=== PATIENT | male | born 1960 | race African-American/Black ===

== ENCOUNTER 2021-06-22 15:31 | Outpatient (CLI) | payer OTHER, SELFPAY ==
--- NOTE | ~2021-06-22 | US_ITS ---
EXAMINATION: US retroperitoneal duplex ltd DATE: 06/22/2021 16:37 INDICATION: Essential hypertension TECHNIQUE: Multiple grayscale, color Doppler, and pulsed Doppler images of the kidneys and renal fiorella delgado were obtained. COMPARISON: None. FINDINGS: The aorta peak systolic velocity is 72 cm/s. The right renal artery peak systolic velocity is 71 cm/s in the proximal segment, 87 cm/s in the mid segment, and 63 cm/s in the distal segment. The left glenis al artery peak systolic velocity is 64 cm/s in the proximal segment, 45 cm/s in the mid segment, and 64 cm/s in the distal segment. IMPRESSION: 1. No Doppler evidence of renal artery stenosis. Reviewed, dictated and finalized at location A.
== END 2021-06-22 15:32 | disposition home or self-care (01) ==
PROVIDERS: PCP Family Medicine; Visit Provider Physician Assistant
DX: I10 Essential (primary) hypertension (principal)
CPT/HCPCS: 93976

== ENCOUNTER 2024-02-26 17:07 | Outpatient (CLI) | payer OTHER, SELFPAY ==
--- NOTE | ~2024-02-26 | XR_ITS ---
Right ankle Technique: AP, oblique, and lateral views were obtained. Clinical History: Varicose veins Findings: No acute fracture or dislocation is seen. Osseous alignment is anatomic. Ankle mortise and other visualized joint spaces are preserved. Soft tissues are otherwise unremarkable. Impression: Unremarkable right ankle. Reviewed, dictated and finalized at [facility]. Impression: Unremarkable right ankle.
== END 2024-02-26 17:08 | disposition home or self-care (01) ==
LOC: ANHLAB 17:09
PROVIDERS: PCP Family Medicine; Visit Provider Family Medicine
DX: R50.9 Fever, unspecified (principal); L97.909 Non-pressure chronic ulcer of unspecified part of unspecified lower leg with unspecified severity; I83.009 Varicose veins of unspecified lower extremity with ulcer of unspecified site
CPT/HCPCS: 73610; 87040

== ENCOUNTER 2024-02-28 11:12 | Outpatient (CLI) | payer OTHER, SELFPAY ==
[2024-02-28 12:18] LABS: Influenza A QL RT-PCR Negative (Negative); Influenza B QL RT-PCR Negative (Negative); RSV RNA, RT-PCR Negative (Negative); SARS-CoV-2 RNA PCR Negative (Negative)
== END 2024-02-28 11:13 | disposition home or self-care (01) ==
LOC: ANHLAB 11:14
PROVIDERS: PCP Family Medicine; Visit Provider Physician Assistant
DX: R50.9 Fever, unspecified (principal); Z20.822 Contact with and (suspected) exposure to COVID-19
CPT/HCPCS: 87637

== ENCOUNTER 2024-04-17 14:27 | Outpatient (CLI) | payer OTHER, SELFPAY ==
--- NOTE | ~2024-04-17 | US_ITS ---
EXAMINATION:US venous doppler LE RT INDICATION:Right leg pain TECHNIQUE: Multiple grayscale, color flow and Doppler images of the right lower extremity deep venous systems were obtained and reviewed. COMPARISON:No prior studies for comparison. FINDINGS: The common femoral, superficial femoral and popliteal veins demonstrate normal respiratory variation, augmentation and compressibility. Color flow is also seen within the posterior tibial, pe roneal, greater saphenous and profunda veins. IMPRESSION: 1: No lower extremity deep venous thrombosis. Reviewed, dictated and finalized at location B.
== END 2024-04-17 14:28 ==
LOC: MICIMG 14:30
PROVIDERS: PCP Family Medicine; Visit Provider Family Medicine
DX: M79.89 Other specified soft tissue disorders (principal)
CPT/HCPCS: 93971

== ENCOUNTER 2024-05-14 15:26 | Outpatient (CLI) | payer OTHER, SELFPAY ==
[2024-05-14 16:05] LABS: Eosinophils Absolute Auto 0.1 K/mm3 (0-0.3); Eosinophils Percent Auto 1.8 % (0-4.4); Hemoglobin 10.8 g/dL (14.0-18.0); Immature Granulocyte Absolute 0.01 K/mm3 (0.00-0.031); Immature Granulocyte Percent A 0.3 % (0-0.5); Lymphocytes Absolute Auto 1.17 K/mm3 (0.9-3.2); Lymphocytes Percent Auto 30.4 % (18.3-44.2); Mean Corpuscular HGB Conc 31.8 g/dl (32-36); Mean Corpuscular Hemoglobin 28.3 pg (26-34); Mean Platelet Volume 9.2 fl (7.4-10.4); Monocytes Absolute Auto 0.5 K/mm3 (0.1-0.6); Monocytes Percent Auto 12.2 % (2.6-8.5); Neutrophils Absolute Auto 2.1 K/mm3 (1.3-6.7); Neutrophils Percent Auto 54.3 % (45.5-73.1); Platelet Count Result 193 k/mm3 (150-375); Red Blood Count 3.82 M/mm3 (4.6-6.20); Red Cell Distribution Width 14.9 % (11.5-14.5); White Blood Count 3.9 K/mm3 (4.5-10.0)
[2024-05-14 20:07] LABS: Iron 108 ug/dL (49-181)
[2024-05-14 20:17] LABS: Percent Iron Saturation 29 % (20-50)
[2024-05-14 22:37] LABS: Folic Acid 12.5 ng/mL (2.76->20)
[2024-05-15 11:13] LABS: Protein, Total 7.4 g/dL (6.1-8.1)
[2024-05-15 14:53] LABS: Alpha 1 Globulin 0.2 g/dL (0.2-0.3); Alpha 2 Globulin 0.7 g/dL (0.5-0.9); Beta 1 Globulin 0.6 g/dL (0.4-0.6); Gamma Globulin 1.3 g/dL (0.8-1.7)
[2024-05-15 23:48] LABS: Hematocrit 35.3 % (38.5-50.0); Hemoglobin 11.1 g/dL (13.2-17.1); MCH 28.4 pg (27.0-33.0); MCV 90.3 fL (80.0-100.0); RDW 14.3 % (11.0-15.0); Red Blood Cell Count 3.91 Million/uL (4.20-5.80)
[2024-05-19 12:07] LABS: Methylmalonic Acid 147 nmol/L (69-390)
[2024-05-23 14:29] LABS: Soluble Transferrin Receptor 2.08 mg/L (0.76-1.76)
== END 2024-05-14 15:27 | disposition home or self-care (01) ==
PROVIDERS: PCP Family Medicine; Visit Provider Internal Medicine Hematology & Oncology
DX: D64.9 Anemia, unspecified (principal)
CPT/HCPCS: 36415; 82607; 82728; 82746; 83021; 83540; 83550; 83921; 84155; 84165; 84238; 85025

== ENCOUNTER 2024-05-28 14:32 | Outpatient (CLI) | payer OTHER, SELFPAY ==
--- NOTE | ~2024-05-28 | US_ITS ---
EXAMINATION: US abdomen complete DATE: 05/28/2024 15:22 INDICATION: Leukopenia. TECHNIQUE: Multiple grayscale and Doppler ultrasound images of the abdomen were obtained. COMPARISON: None FINDINGS: The visualized portions of the head, body, and tail of the pancreas are normal. Abdominal a jerardo is normal in caliber. Inferior vena cava is normal. There is a 12 mm hyperechoic mass in the rig ht hepatic lobe. There is normal flow in main portal vein. The gallbladder is normal in size. No gall stones or gallbladder wall thickening. There is no sonographic Bajwa's sign. The common duct is norm al and measures 6 mm. The kidneys are normal size. The spleen is normal in size. IMPRESSION: 1. 12 mm hyperechoic mass in the liver. In the absence of known malignancy or chronic liver disease, this finding is likely a hemangioma. Reviewed, dictated and finalized at location A. IMPRESSION: 1. 12 mm hyperechoic mass in the liver. In the absence of known malignancy or c hronic liver disease, this finding is likely a hemangioma.
== END 2024-05-28 14:33 | disposition home or self-care (01) ==
PROVIDERS: PCP Family Medicine; Visit Provider Internal Medicine Hematology & Oncology
DX: R16.0 Hepatomegaly, not elsewhere classified (principal); D72.819 Decreased white blood cell count, unspecified
CPT/HCPCS: 76700

== ENCOUNTER 2025-02-25 00:26 | Day surgery (SDC) | payer OTHER, SELFPAY ==
[2025-02-13 13:55] VITALS: BMI 23.7
--- OUTSIDE RECORDS SUMMARY | 2025-02-25 00:29 | XMS_ITS | Clinical Summary ---
Author Organization [facility] Diane Castro Address [address] [place] [address] Care Team Providers Care Frame Table Operator Name Role Phone Unavailable Primary Care Provider Unavailabl e Allergies No known active allergies Medications ferrous sulfate 325 mg (65 mg iron) tablet Take 325 mg by mouth daily. Active CINNAMON BARK ORAL Take by mouth. Active oxyBUTYnin (DITROPAN XL) 5 mg Extended Release 24 hour tablet Take 5 mg by mouth daily. Active lisinopriL (PRINIVIL) 20 mg tablet Take 20 mg by mouth daily. Active SITagliptin phosphate (JANUVIA) 100 mg Tablet Take 100 mg by mouth daily with breakfast. Active glipiZIDE (GLUCOTROL XL) 2.5 mg Extended Release 24 hour tablet Take 2.5 mg by mouth daily with breakfast. Active SENNA LEAF EXTRACT ORAL Take by mouth. Active calcium carb/vitamin D3/vit K1 (CALCIUM-VITAMIN D3-VITAMIN K ORAL) Take by mouth. Active multivitamin (DAILY-KRISTINA) tablet Take 1 Tablet by mouth daily. Active ASCORBIC ACID, VITAMIN C, ORAL Take by mouth. Active Active Problems No known active problems Encounters Date Type Department Care Team Description 12/08/2024 External Device Data STL ABSTRACTION Provider, Abstract 12/02/2024 Orders Only [facility] Oncology and Hematology - [address] [address] Nav Yi MD Chronic anemia (Primary Dx) from Last 3 Months Family History Medical History Relation Name Comments Diabetes Father Diabetes Mother Stomach Cancer Mother Diabetes Sister Heart Disease Sister Relation Name Status Comments Father Mother Sister Social History Tobacco Use Types Packs/Day Years Used Date Smoking Tobacco: Never Tobacco Cessation:Counseling Given: Not Answered Alcohol Use Standard Drinks/Week Comments Not Currently 0 (1 standard drink = 0.6 oz pur e alcohol) Sex and Gender Information Value Date Recorded Sex Assigned at Not on file Legal Sex Male 12:02 PM CDT Gender Identity Not on file Sexual Orientation Not on file Last Filed Vital Signs Vital Sign Reading Time Taken Comments Blood Pressure 121/75 06/05/2024 3:45 PM CDT Pulse 87 06/05/2024 3:45 PM CDT Temperature 36.7 C (98 F) 06/05/2024 3:45 PM CDT Respiratory Rate 16 06/05/2024 3:45 PM CDT Oxygen Saturation 96% 06/05/2024 3:45 PM CDT Inhaled Oxygen Concentration - - Weight 73.9 kg (163 lb) 06/05/2024 3:45 PM CDT Height 175.3 cm (5' 9) 05/14/2024 2:46 PM CDT Body Mass Index 24.07 05/14/2024 2:46 PM CDT Plan of Treatment Upcoming Encounters Date Type Department Care Team (Late st Contact Info) Description 04/07/2025 3:30 PM CDT Office Visit [facility] Oncology and Hematology [facility] [address] [place] [address] [facility] [address] [place] [address] Nav Yi MD [address] [facility] [address] [place] [address] Health Maintenance Due Date Last Done Comments DTAP/TDAP/TD VACCINES (1 - Tdap) 1980 COLORECTAL SCREENING 2006 Colorectal Cancer Screening 2006 FIT-DNA Q 3 years 2006 FIT/FOBT Q 1 year 2006 Flex Sig/CT Colonography Q 5 years 2006 ZOSTER VACCINE (1 of 2) 2011 INFLUENZA VACCINE (#1) 2024 RSV VACCINE (60+ or ) (1 - 1-dose 75+ series) 2036 Insurance [employer] OPEN ACCESS HMO
--- OUTSIDE RECORDS SUMMARY | 2025-02-25 00:29 | XMS_ITS | Continuity of Care Document ---
Author Organization [facility] Address [address] [place] [address] Phone Care Team Providers Care Brush Material Preparer Name Role Phone Syd Guevara MD Unavailable Unavailable Allergies, Adverse Reactions, Alerts Substance Reaction Status Criticality No Known Drug Allergies Other Active No I nformation Medications Medication Instructions Dosage Effective Dates (start - stop) Status Comments GlipiZIDE 10MG TAB TAKE ONE TABLET BY MOUTH ONCE DAILY No Longer Active ACTOS 30 MG TABLET TAKE ONE TABLET BY MOUTH EVERY DAY 30 MG No Longer Active Glucophage 1,000 mg tablet TAKE ONE TABLET BY MOUTH TWICE DAILY No Longer Active lisinopril 20 mg-hydrochlorothia zide 12.5 mg tablet take 1 tablet by mouth 2 times daily No Longer Active One Touch Ultra Test strips 1 DIRECTE No Longer Active One Touch UltraSoft Lancets 1 DIRECTE No Longer Active VYTORIN 10-20 MG TABLET 1 QPM No Longer Active ADULT LOW STRENGTH 81MG TABS 1 QD-daily No Longer Active Advance Directives Directive Yes / No Effective Date File Name No Information Encounters Encounter Description Practice Location Reason(s) For Visit Diagnoses Date Provider Providers Copied on Encounter [facility], [address], [place], [place], [address] , [place] tel:[phone] [facility] No Information 0 3-201 6 Ismael Velarde. [address] [facility], [address], [place], [place], [address], [place]. [phone] [facility], [address], [place], [place], [address] , [place] tel: [phone] [facility] No Information Sep 4-201 5 Ismael Velarde. [address] [place] [address], [address], [place], [place], [address], [place]. [phone] [facility], [address], [place], [place], [address] , [place] tel: [phone] [facility] No Information 7- 5 Jack Curran. [address] [place], [place], [address], [place]. tel:[phone] [facility], [address], [place], [place], [address] , [place] tel: [phone] [facility] No Information 2 5 Jack Curran. [address] [place], [place], [address], [place]. [phone] [facility], [address], [place], [place], [address] , [place] tel: [phone] [facility] Routine medical examDiabetes with retinopathyBackg round diabetic retinopathyAnemi a, unspecifiedHyper tension, benignColon cancer screeningProstat e cancer screeningRoutine Medical Exam 0- 4 Jack Jovel [address] [place], [place], [address], [place]. tel:[phone] Referring Provider: [place], [address] . tel:[phone] [facility], [address], [place], [place], [address] , [place] tel: [phone] [facility] Anemia, unspecifiedBENIG N HYPERTENSIONDIAB ETIC RETINOPATHY NOSHYPERLIPIDEMI A NEC/NOSUncontrol led diabetes mellitus with ophthalmic comErectile dysfunctionAtypi zainab chest painRoutine general medical examination at [facility] 2 No Information [facility], [address], [place], [place], [address] , [place] tel:[phone] [facility] Anemia, unspecifiedDiabe sona with ophthalmic manifestations, type II or unspecified type, uncontrolled 2 No Information [facility], [address], [place], [place], [address] , [place] tel: [phone] [facility] No Information 1 No Information [facility], [address], [place], [place], [address] , [place] tel: [phone] [facility] No Information 1 No Information [facility], [address], [place], [place], [address] , [place] tel: [facility] BENIGN HYPERTENSIONHYPE RLIPIDEMIA NEC/NOS 0 Plisco Altman. [address], [place], [place], [address], [place]. tel:[phone] [facility], [address], [place], [place], [address] , [place] tel: [facility] DMII WO CMP NT ST UNCNTRNOCTURIAAN EMIA NOS 0 No Information [facility], [address], [place], [place], [address] , [place] tel: [facility] IDIO PERIPH NEURPTHY NECLONG-TERM USE MEDS NEC 3-200 9 Plisco Altman. [address], [place], [place], [address], [place]. tel:[phone] [facility], [address], [place], [place], [address] , [place] tel: [facility] DMII WO CMP UNCNTRLD 2-200 9 Plisco Altman. [address], [place], [place], [address], [place]. tel:[phone] [facility], [address], [place], [place], [address] , [place] tel: [phone] [facility] SCRN MALIG NEOP-PROSTATE 9 No Information [facility], [address], [place], [place], [address] , [place] tel: [phone] [facility] CRISTIAN HY KID W CR KID I-IVDMII RENAL UNCNTRLDCHRO KIDNEY DIS STAGE II 8 No Information [facility], [address], [place], [place], [address] , [place] tel: [phone] [facility] CHR KIDNEY DIS STAGE IIIDIABETIC RETINOPATHY NOS 7 No Information [facility], [address], [place], [place], [address] , [place] tel: [phone] [facility] URINARY FREQUENCY 7 Plisco Altman. [address], [place], [place], [address], [place]. tel:[phone] [facility], [address], [place], [place], [address] , [place] tel: [phone] [facility] No Information 7 No Information [facility], [address], [place], [place], [address] , [place] tel: [phone] [facility] MITRAL VALVE DISORDER 7200 6 Plisco Altman. [address], [place], [place], [address], [place]. tel:[phone] [facility], [address], [place], [place], [address] , [place] tel: [phone] [facility] CHEST PAIN NEC 6-200 5 Plisco Altman. [address], [place], [place], [address], [place]. tel:[phone] [facility], [address], [place], [place], [address] , [place] tel: [phone] [facility] PAIN IN LIMB 7-200 5 Plisco Altman. [address], [place], [place], [address], [place]. tel:[phone] [facility], [address], [place], [place], [address] , [place] tel: [phone] [facility] PROTEINURIA 2-200 5 Plisco Altman. [address], [place], [place], [address], . tel:[phone] [facility], [address], [place], [place], [address] , tel: [phone] [facility] CHR ISCHEMIC HRT DIS NOS 7-200 5 Plisco Altman. [address], [place], [place], [address], [place]. tel:[phone] [facility], [address], [place], [place], [address] , tel: [phone] [facility] HYPERTENSIVE RETINOPATHYSCREE N-NEOPLASM NOSHYPERTENSION NOS 9-200 2 Plisco Altman. [address], [place], [place], [address], [place]. tel:[phone] Family History Family Member Type Diagnosis Age At Onset Sister Problem (finding) diabetes melli tus in first degree relative Payers Payer name Insurance type Covered democrat ID Authorbola duran(s) [facility] CI [id number] Social History Type Description Quantity Date Captured Comments Sex Male Smoking Status No Information Chief Complaint And Reason For Visit No Information Reason For Referral Reason For Referral No Information History Of Present Illness Encounter Date Complaint History Of Prese nt Illness No Information Functional Status Date Functional Assessmen t No Information Instructions Date Instruction Additional Infor mation No Information Assessments Type Assessment Date No Information Patient Care Teams Name Effective Dates (start - stop) Status Members No Information
[2025-02-25 09:00] VITALS: BP 146/84; PULSE 108; RESP 18; TEMP 36.4; O2SAT 100
[2025-02-25 09:00] LABS: Glucose Point of Care 250 mg/dl (65-105)
[2025-02-25] MEDS: LACTATED RINGERS 1,000 ML 150 ML IV CONT (09:10)
--- NOTE | 2025-02-25 09:22 | P.PNAN_ITS ---
Anes - Initial Pre Proc Eval Procedure: Operation Date: 02/25/25 10:00 Proposed Procedures p Screening Colonoscopy - Joshua Panda MD Date/Time: 02/25/25 09:22 Surgeon: Joshua Panda MD Pre Op Diagnosis: Screening Patient Data Age: 64 Gender: M Height: 1.78 m Weight: 73.2 kg Last Vital Signs Temp 97.6 F 02/25/25 09:00 Pulse 108 H 02/25/25 09:00 Resp 18 02/25/25 09:00 BP 146/84 H 02/25/25 09:00 Pulse Ox 100 02/25/25 09:00 O2 Del Method Room Air 02/25/25 09:00 Allergies Allergy/AdvReac Type Severity Reaction Status Date / Time codeine Allergy Mild rash Verified 02/25/25 08:59 Home Medications ?Medication ?Instructions ?Recorded ?Confirmed ?Type aspirin 81 mg tablet,delayed 81 mg PO DAILY 10/07/19 02/25/25 History release (Adult Low Dose Aspirin) oxybutynin chloride 5 mg tablet See Rx Instructions .Route 10/19/24 02/25/25 Rx .COMPLEX #60 tabs glipizide 2.5 mg tablet, extended See Rx Instructions .Route 11/07/24 02/25/25 Rx release 24 hr .COMPLEX #180 tabs sitagliptin phosphate 100 mg See Rx Instructions .Route 12/23/24 02/25/25 Rx tablet (Januvia) .COMPLEX #90 tabs lisinopril 20 mg tablet See Rx Instructions .Route 02/02/25 02/25/25 Rx .COMPLEX #90 tabs Laboratory Tests 02/25/25 08:55 POC Capillary Glucose 250 H mg/dl (65-105) Patient hx anesthesia problems: none Family hx anesthesia problems: none Results Review: All pre-operative results and documents have been reviewed as part of the pre- operative evaluation. [facility] Past Medical History Medical History (Updated 12/05/24 @ 08:52 by Rahat Cesar MD) HTN (hypertension) Benign reactive hypertension Retinal detachment of right eye due to tear of retina Diabetic retinopathy associated with controlled type 2 diabetes mellitus Family History Family History Mother Family history of diabetes mellitus in first degree relative Afib Sibling Family history of diabetes mellitus in first degree relative Afib Father Diabetes mellitus Hypertension Social History Social History (Updated 04/15/24 @ 16:22 by Vi Paige) Social History: Smoking status: Never smoker Second hand tobacco smoke exposure: No Alcohol intake: never Substance use: never Substance use type: does not use Do You Feel Safe in your Home?: Yes Lack of Transportation: No Lack of Food: Never True Current Housing: I Have Housing Concerned About Future Housing: No Difficulty Paying Gas/Electric Bills: No Difficulty Paying for Meds: No Currently Unemployed: No Education: Decline to Answer Living arrangements: with family Additional living arrangements comments: with sp Occupation/Education: occupation Gender identity (if verbalized by the patient): Male Sexual Orientation (if Verbalized by the Patient): Straight or Heterosexual Spiritual care concerns: No Agree to blood products: Yes Anes - Eval Final PreProcedure Day of Procedure 02/25/25 09:22 Patient weight: normal Heart: regular rate and rhythm Lungs: clear to auscultation Airway: Mallampati scale class II Neurological: alert and oriented Last oral intake: >/= 8 hours ASA classification: III Emergent: no Anesthetic plan: proceed Anesthesia type and monitoring: general GIVS and standard monitoring Results Review: All pre-operative results and documents have been reviewed as part of the pre- operative evaluation. Informed Consent: The patient's anesthetic plan and its attendant risks and benefits were discussed with the patient/family/POA. Questions were solicited and answers provided to the satisfaction of the patient/family/POA.
--- NOTE | 2025-02-25 10:06 | PM.IMHP ---
H&P: HPI History of Present Illness Date/Time: 02/25/25 10:06 Chief Complaint: History of colon polyps Narrative: The patient has a history of colonic polyps, the last colonoscopy was in 2019. Review of Systems Review of Systems: All systems reviewed & are unremarkable except as noted in HPI and below PMFSH Past Medical History Medical History (Updated 12/05/24 @ 08:52 by Rahat Cesar MD) HTN (hypertension) Benign reactive hypertension Retinal detachment of right eye due to tear of retina Diabetic retinopathy associated with controlled type 2 diabetes mellitus Family History Family History Mother Family history of diabetes mellitus in first degree relative Afib Sibling Family history of diabetes mellitus in first degree relative Afib Father Diabetes mellitus Hypertension Social History Social History (Updated 04/15/24 @ 16:22 by Vi Paige) Social History: Smoking status: Never smoker Second hand tobacco smoke exposure: No Alcohol intake: never Substance use: never Substance use type: does not use Do You Feel Safe in your Home?: Yes Lack of Transportation: No Lack of Food: Never True Current Housing: I Have Housing Concerned About Future Housing: No Difficulty Paying Gas/Electric Bills: No Difficulty Paying for Meds: No Currently Unemployed: No Education: Decline to Answer Living arrangements: with family Additional living arrangements comments: with sp Occupation/Education: occupation Gender identity (if verbalized by the patient): Male Sexual Orientation (if Verbalized by the Patient): Straight or Heterosexual Spiritual care concerns: No Agree to blood products: Yes Meds Home Medications and Allergies Home Medications ?Medication ?Instructions ?Recorded ?Confirmed ?Type aspirin 81 mg tablet,delayed 81 mg PO DAILY 10/07/19 02/25/25 History release (Adult Low Dose Aspirin) oxybutynin chloride 5 mg tablet See Rx Instructions .Route 10/19/24 02/25/25 Rx .COMPLEX #60 tabs glipizide 2.5 mg tablet, extended See Rx Instructions .Route 11/07/24 02/25/25 Rx release 24 hr .COMPLEX #180 tabs sitagliptin phosphate 100 mg See Rx Instructions .Route 12/23/24 02/25/25 Rx tablet (Januvia) .COMPLEX #90 tabs lisinopril 20 mg tablet See Rx Instructions .Route 02/02/25 02/25/25 Rx .COMPLEX #90 tabs Allergies Allergy/AdvReac Type Severity Reaction Status Date / Time codeine Allergy Mild rash Verified 02/25/25 08:59 Vital Signs Vital Signs - 24 hr 02/25/25 09:00 Temperature 97.6 F Pulse Rate 108 H Respiratory Rate 18 Blood Pressure 146/84 H Pulse Oximetry 100 Oxygen Delivery Room Air Exam Const: General: cooperative and healthy appearing Resp: Effort & Inspection: normal respiratory effort and able to speak in complete sentences Auscultation: clear to auscultation bilaterally Cardio: Rate: regular rate Rhythm: regular rhythm GI: Inspection: normal to inspection GI Palp: No No hepatosplenomegaly present Auscultation: normal bowel sounds Rectal Exam: deferred Skin: General skin exam: normal color Psych: Appearance: grossly normal Mental Status: mental status grossly normal Assessment and Plan Assessment and plan (1) Screen for colon cancer: Code(s): Z12.11 - Encounter for screening for malignant neoplasm of colon Status: Acute Assessment and Plan: The patient is deemed a good candidate for the procedure. Consent signed. Will proceed.
[2025-02-25] MEDS: SIMETHICONE ORAL SUSPENSION 20 MG/0.3 ML 30 ML BOTTLE 0.6 ML IRRIGATION (10:24)
--- NOTE | 2025-02-25 10:34 | S_PTH ---
PATIENT: Demetrius Farmer III LOC: [facility] #:[id number] AGE/SX: 64/M ROOM: RE02/25/[address]: Joshua Panda MD : 1960 BED: DIS: 02/25/2025 SPEC #: [id number] RECD: 02/25/25 11:15 STATUS: YOLI REQ #: [id number] GAGE: 02/25/25 10:[address]: Joshua Panda DEPT: [facility] Surgical RECD BY: Rozina Reyes ENTERED: 02/25/25 11:16 SP TYPE: Surgical OTHR DR: Rahat Cesar MD Tissues: A - Colon Polypectomy B - Colon Polypectomy Procedures: Hematoxylin and Eosin Stain Gross and Microscopic Level 4
[2025-02-25 10:39] VITALS: BP 101/68; PULSE 81; RESP 19; O2SAT 100
[2025-02-25 10:49] VITALS: BP 123/81; PULSE 80; RESP 23; O2SAT 100
[2025-02-25 10:59] VITALS: BP 134/78; PULSE 72; RESP 17; O2SAT 100
[2025-02-25 11:09] VITALS: BP 152/85; PULSE 74; RESP 17; O2SAT 100
== END 2025-02-25 11:25 | disposition home or self-care (01) ==
PROVIDERS: PCP Family Medicine; Referring Provider Family Medicine; Visit Provider Internal Medicine Gastroenterology
PROC: 0DJD8ZZ Inspection of Lower Intestinal Tract, Via Natural or Artificial Opening Endoscopic (ICD-10-PCS; CPT 45378; principal; 2025-02-25 10:00)
DX: Z12.11 Encounter for screening for malignant neoplasm of colon (principal); D12.8 Benign neoplasm of rectum; I10 Essential (primary) hypertension; E11.319 Type 2 diabetes mellitus with unspecified diabetic retinopathy without macular edema; Z79.82 Long term (current) use of aspirin; Z79.84 Long term (current) use of oral hypoglycemic drugs
CPT/HCPCS: 45385; 82948; 88305; J2003; J2704; J7120